=== PATIENT | female | born 1965 | race Caucasian/White ===

== ENCOUNTER 2025-02-06 15:01 | Inpatient (IN) | payer MEDICAID, SELFPAY ==
[~2025-02-06] VITALS: Ht 162.6 cm; Wt 71.2 kg
[~2025-02-06 15:01] MED LIST: CYCL-181; DICY-89
--- NOTE | 2025-02-06 15:12 | ED.PDOC ---
[facility] HPI Comments 59-year-old female who comes in with chief complaint of right-sided flank pain. The pain radiates around to the right lower quadrant and started this morning. There has been no dysuria or hematuria. The patient has had some nausea and vomiting today. The patient denies any chest pain, shortness for breath or fever. The patient admits to marijuana and methamphetamine use. The patient denies any trauma. 911 was called and the patient was transported to our facility. Upon arrival, the patient is still complaining of right-sided flank pain. Time Seen by MD: 15:06 Primary Care Provider: JEANINE Reviewed notes: Nurses Notes, Idea Man Notes, Medications, Allergies (No allergies to medications) Allergies: Coded Allergies: NO KNOWN ALLERGIES (Unverified , 01/13/10) Home Meds Reported Medications Dicyclomine Hcl (Dicyclomine Hcl) 10 Mg Cap, PRN 01/13/10 Cyclobenzaprine Hcl (Flexeril) 10 Mg Tb, PRN 01/13/10 Information Source: Patient, Emergency Med Personnel Mode of Arrival: EMS Severity: Moderate Inability to void: None Timing: Hours Duration: Since onset Prehospital treatment: None Onset: Spontaneous Symptoms: None History of: None Location: (R) Flank Modifying factors: None associated signs and symptoms: Abdominal Pain, Nausea, Vomiting, Flank Pain (Right-sided flank pain) Past Medical History PAST MEDICAL HISTORY: Denies Surgical History: Cholecystectomy, Tonsillectomy 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 History Family History Family History: Family hx of DM, Family hx of Cancer, Family hx of heart roro Social History Smoker: Cigarettes Alcohol: Denies ETOH Use Drugs: Denies Drug Use, Marijuana, Methamphetamine Lives In: Home Constitutional: denies: chills, diaphoresis, fatigue, fever, malaise, sweats, weakness, others EENTM: denies: blurred vision, double vision, ear bleeding, ear discharge, ear drainage, ear pain, ear ringing, eye pain, eye redness, hearing loss, mouth pain, mouth swelling, nasal discharge, nose bleeding, nose congestion, nose pain, photophobia, tearing, throat pain, throat swelling, voice changes, others Respiratory: denies: cough, hemoptysis, orthopnea, SOB at rest, shortness of breath, SOB with excertion, stridor, wheezing, others Cardiovascular: denies: chest pain, dizzy spells, diaphoresis, Dyspnea on exertion, edema, irregular heart beat, left arm pain, lightheadedness, palpitations, PND, syncope, others Gastrointestinal: reports: nausea, vomiting; denies: abdomen distended, abdominal pain, blood streaked bowels, constipated, diarrhea, dysphagia, difficulty swallowing, hematemesis, melena, poor appetite, poor fluid intake, rectal bleeding, rectal pain, others Genitourinary: reports: flank pain (Right-sided flank pain); denies: abnormal vagina bleeding, burning, dyspareunia, dysuria, frequency, hematuria, incontinence, pain, , vagina discharge, urgency, others Neurological: denies: dizziness, fainting, headache, left sided numbness, left sided weakness, numbness, paresthesia, pre-existing deficit, right sided numbness, right sided weakness, seizure, speech problems, tingling, tremors, weakness, others Musculoskeletal: denies: back pain, gout, joint pain, joint swelling, muscle pain, muscle stiffness, neck pain, others Integumetry: denies: bruises, change in color, change in hair/nails, dryness, laceration, lesions, lumps, rash, wounds, others Allergic/Immunocompromised: denies: Difficulty Healing, Frequent Infections, Hives, Itching, others Hematologic/Lymphatic: denies: anemia, blood clots, easy bleeding, easy bru ising, swollen glands, others Endocrine: denies: excessive hunger, excessive sweating, excessive thirst, e xcessive urination, flushing, intolerance to cold, intolerance to heat, unexplained weight gain, unexplained weight loss, others Psychiatric: denies: anxiety, bipolar disorder, depression, hopeless, panic disorder, schizophrenia, sleepless, suicidal, others Physical Exam General Appearance: Moderate Distress HEENT: Normal ENT Inspection, Pharynx Normal, TMs Normal Neck: Full Range of Motion, Non-Tender, Normal, Normal Inspection Respiratory: Chest Non-Tender, Lungs Clear, No Accessory Muscle Use, No Respiratory Distress, Normal Breath Sounds Cardiovascular: No Edema, No JVD, No Murmur, No Gallop, Normal Peripheral Pu lses, Regular Rate/Rhythm Breast Exam: Deferred Gastrointestinal: No Organomegaly, Non Tender, No Pulsatile Mass, Normal Bowel Sounds, Soft Genitalia: Deferred Pelvic: Deferred Rectal: Deferred Extremities: No calf tenderness, Normal capillary refill, Normal inspection, Normal range of motion, Non-tender, No pedal edema Musculoskeletal : Location: Right Extremity Location: Back Apperance: Tenderness: Mild Neurologic: Alert, prior authorization nurse II-XII nml as Tested, No Motor Deficits, Normal Affect, Normal Mood, No Sensory Deficits Cerebellar Function: Normal Reflexes: Normal Skin: Dry, Normal Color, Warm Lymphatic: No Adenopathy Was a procedure done? Was a procedure done?: No EKG EKG : Pulse Rate (adult): 55 [place]: Normal Cardiac Rhythm: NSR Block: None ST: Nonsp Differential Diagnosis Kidney stone (Female): Musculoskeletal pain, Pyelonephritis, Renal failure, Strain, Urolithiasis X-Ray, Labs, Meds, VS Vital Signs Date Time Temp Pulse Resp B/P (MAP) Pulse Ox O2 Delivery O2 Flow Rate FiO2 02/06/25 15:17 98.0 72 24 144/77 (99) 98 98.0 02/06/25 15:12 55 02/06/25 15:06 55 Lab Test 02/06/25 15:30 02/06/25 15:03 Range/Units White Blood Count 10.0 4.4-10.8 10^3/uL Red Blood Count 5.18 4.0-5.20 10^6/uL Hemoglobin 15.2 12.2-16.2 g/dL Hematocrit 45.1 36.0-46.0 % Mean Corpuscular Volume 87.0 80.0-100.0 fL Mean Corpuscular Hemoglobin 29.3 28.0-32.0 pg Mean Corpuscular Hemoglobin Concent 33.6 32.0-36.0 g/dL Red Cell Distribution Width 13.8 11.8-14.3 % Platelet Count 199 140-450 10^3/uL Mean Platelet Volume 10.2 6.9-10.8 fL Neutrophils (%) (Auto) 77.5 37.0-80.0 % Lymphocytes (%) (Auto) 15.0 10.0-50.0 % Monocytes (%) (Auto) 5.5 0.0-12.0 % Eosinophils (%) (Auto) 1.3 0.0-7.0 % Basophils (%) (Auto) 0.7 0.0-2.0 % Neutrophils # (Auto) 7.8 1.6-8.6 10 ^3/uL Lymphocytes # (Auto) 1.5 0.4-5.4 10 ^3/uL Monocytes # (Auto) 0.6 0-1.3 10 ^3/uL Eosinophils # (Auto) 0.1 0-0.8 10 ^3/uL Basophils # (Auto) 0.1 0-0.2 10 ^3/uL Nucleated Red Blood Cells 0.1 % Sodium Level 143 136-145 mmol/L Potassium Level 4.0 3.5-5.1 mmol/L Chloride Level 108 H 98-107 mmol/L Carbon Dioxide Level 26 20-31 mmol/L Anion Gap 9 5-15 Blood Urea Nitrogen 15 9-23 mg/dL Creatinine 1.01 0.550-1.02 mg/dL Glomerular Filtration Rate Calc 63 >90 mL/min BUN/Creatinine Ratio 14.9 10.0-20.0 Serum Glucose 111 H 74-106 mg/dL Calcium Level 10.8 H 8.7-10.4 mg/dL Urine Color Yellow Yellow Urine Clarity Clear Clear Urine pH 6.5 5.0-9.0 Urine Specific [place] 1.021 1.001-1.035 Urine Protein Negative Negative Urine Ketones Negative Negative Urine Blood 1+ H Negative /uL Urine Nitrite Negative Negative Urine Bilirubin Negative Negative Urine Urobilinogen Normal Negative mg/dL Urine Leukocyte Esterase Negative Negative /uL Urine RBC 46 0 - 4 /hpf Urine Microscopic WBC 1 0-5 /HPF Urine Squamous Epithelial Cells Few <5 /hpf Urine Bacteria None seen None Seen /hpf Urine Mucus Few None Seen Urine Glucose Normal Normal mg/dL IV Hep-Lock was established The patient was given 1 L bolus of normal saline The patient was given morphine 4 mg IV push for the pain The patient was given Zofran 4 mg IV push for the nausea CT Scan of the abdomen and pelvis shows: IMPRESSION: Mild right hydronephrosis with 3 x 4 mm obstructing calculus within the right distal ureter. Additional punctate nonobstructing right renal lower pole calculi are noted. Mild gastric wall thickening which may be due to inadequate distention/ mild gastritis. Appendix is not definitely visualized. Without visualization of the appendix, can not exclude acute appendicitis. 1.4 cm left adrenal adenoma The urine test is negative for infection The patient's CBC and chemistry panel are within normal limits The patient is being admitted A urology consult will be obtained The patient's diagnosis is acute abdominal pain with the right ureterolithiasis Images Reviewed?: Images reviewed and evaluated by me Time of 1ST Reevaluation: 15:12 Reevaluation 1ST: Unchanged Patient Education/Counseling: Diagnosis, Treatment, Prognosis Family Education/Counseling: No Family Present SEPSIS Sepsis Screen Physician Orders Ct Ab Pel Wo Con-No Oral Or Iv (02/06/25 15:06) Heplock Iv (02/06/25 15:06) Telehealth Director (02/06/25 15:06) Blood Pressure (02/06/25 15:06) Pulse Oximetry (02/06/25 15:06) Vital Signs Date Time Temp Pulse Resp B/P (MAP) Pulse Ox O2 Delivery O2 Flow Rate FiO2 02/06/25 15:17 98.0 72 24 144/77 (99) 98 98.0 02/06/25 15:12 55 02/06/25 15:06 55 Laboratory Tests Test 02/06/25 15:30 White Blood Count 10.0 10^3/uL (4.4-10.8) Departure 1 Departure Time of Disposition: 17:10 Impression: Primary Impression: Intractable abdominal pain Additional Impressions: Ureterolithiasis Hydronephrosis, right Disposition: 09 ADMITTED INPATIENT Admit to: Med Surg Condition: Fair Critical Care Note Critical Care Time?: No Stability Stability form required: Yes Unstable for transfer: ED Physician Assesment (Clinical assesment) Heart Score Heart Score: Heart Score Response (Comments) Value History N/A 0 EKG N/A 0 Age N/A 0 Risk Factors N/A 0 Troponin N/A 0 Total 0 THELMA BAUTISTA MD Feb 06, 2025 15:12
--- NOTE | 2025-02-06 15:15 | ECG ---
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
[2025-02-06 15:43] LABS: Basophils # (auto) 0.1 10 ^3/uL (0-0.2); Basophils % (auto) 0.7 % (0.0-2.0); Eosinophils # (auto) 0.1 10 ^3/uL (0-0.8); Eosinophils % (auto) 1.3 % (0.0-7.0); Hematocrit 45.1 % (36.0-46.0); Hemoglobin 15.2 g/dL (12.2-16.2); Lymphocytes # (auto) 1.5 10 ^3/uL (0.4-5.4); Mean Corpuscular Hemoglobin 29.3 pg (28.0-32.0); Mean Corpuscular Hgb Conc. 33.6 g/dL (32.0-36.0); Monocytes # (auto) 0.6 10 ^3/uL (0-1.3); Monocytes % (auto) 5.5 % (0.0-12.0); Neutrophils # (auto) 7.8 10 ^3/uL (1.6-8.6); Neutrophils % (auto) 77.5 % (37.0-80.0); Nucleated Red Blood Cells % 0.1 %; Platelet Count (auto) 199 10^3/uL (140-450); Red Blood Cells 5.18 10^6/uL (4.0-5.20); Red Cell Distribution Width 13.8 % (11.8-14.3)
[2025-02-06 15:55] LABS: Sodium 143 mmol/L (136-145)
[2025-02-06 15:56] LABS: Anion Gap 9 (5-15); Carbon Dioxide 26 mmol/L (20-31)
[2025-02-06 16:01] LABS: BUN/Creatinine Ratio 14.9 (10.0-20.0); Blood Urea Nitrogen 15 mg/dL (9-23); Calcium 10.8 mg/dL (8.7-10.4); Chloride 108 mmol/L (98-107); Glucose 111 mg/dL (74-106)
[2025-02-06 16:04] LABS: Urine Bacteria None Seen /hpf (None Seen)
[2025-02-06 16:15] LABS: Urine Blood 1+ /uL (Negative); Urine Clarity Clear (Clear); Urine Color Yellow (Yellow); Urine Mucus FEW (None Seen); Urine Protein, UAD Negative (Negative); Urine Specific Gravity 1.021 (1.001-1.035); Urine Squamous Epithelial Cell FEW /hpf (<5); Urine Urobilinogen Normal (Negative); Urine WBC 1 /HPF (0-5); Urine pH 6.5 (5.0-9.0)
--- NOTE | 2025-02-06 17:02 | DVH ---
Exam: CT CT AB PEL WO CON-NO ORAL OR IV History: Right-sided flank pain Comparison Study: None TECHNIQUE: Multidetector CT of the abdomen and pelvis without IV contrast. Axial, coronal and sagitta l multiplanar reformats were obtained from the axial data set by the technologist. Radiation Dose Information: CT Dose: CTDI volume is 7.79 mGy. Dose-length product is 370.83 mGy*cm FINDINGS: Bibasilar atelectasis. Partially visualized heart is unremarkable. Liver, spleen, pancreas and right adrenal gland are unremarkable. 1.8 cm left adrenal nodule measurin g up to -4 Hounsfield units which may represent an adenoma. Punctate nonobstructing right renal calculi. Mild right hydronephrosis with 3 x 4 mm obstructing calc ulus within the right distal ureter in close proximity to the ureterovesical junction. The left kidne y, left ureter and urinary bladder are unremarkable. Uterus and adnexa are unremarkable. Mild gastric wall thickening. Small bowel loops unremarkable. Appendix is not definitely visualized. Without Visualization of the appendix, can not exclude acute appendicitis. Small to moderate amount of fecal material within the colon. No evidence of intraperitoneal free air or free fluid. No evidence of aortic aneurysm. [id number] atherosclerotic calcification of the aorta and bilat eral iliacs. No significant lymphadenopathy. Soft tissues unremarkable. No destructive osseous lesions are noted. IMPRESSION: Mild right hydronephrosis with 3 x 4 mm obstructing calculus within the right distal ureter. Additional punctate nonobstructing right renal lower pole calculi are noted. Mild gastric wall thickening which may be due to inadequate distention/ mild gastritis. Appendix is not definitely visualized. Without visualization of the appendix, can not exclude acute a ppendicitis. 1.4 cm left adrenal adenoma
[2025-02-06] MEDS: SODIUM CHLORIDE 0.9% 1,000 ML IVB ONE (18:29)
[2025-02-06] MEDS: ONDANSETRON HCL 4 MG/2 ML VIAL IV ONE (18:29)
[2025-02-06] MEDS: MORPHINE SULFATE 4 MG/ML SYR/VIAL IV ONE (18:30)
[2025-02-06] MEDS ORDERED: ONDANSETRON HCL 4 MG/2 ML VIAL IV PRN (19:30)
[2025-02-06] MEDS ORDERED: ACETAMINOPHEN 325 MG TAB PO PRN (19:30)
[2025-02-06] MEDS ORDERED: HYDROcodone-ACET 5/325MG TAB PO PRN (19:30)
[2025-02-06] MEDS: SODIUM CHLORIDE 0.9% 500 ML IV ONE (21:02)
[2025-02-06] MEDS: TAMSULOSIN HYDROCHLORIDE 0.4 MG CAP PO ONE (21:02)
--- NOTE | 2025-02-06 21:30 | DVHHP2 ---
History of Present Illness Reason for Visit: Flank pain History of Present Illness 67-year-old female presents for evaluation of right-sided flank pain. Patient reports the symptoms started today in the afternoon. Denies dysuria or hematuria. Reports chills and nausea. No other acute complaints reported Past Medical History Denies Past Surgical History Tonsillectomy and cholecystectomy Family History Diabetes mellitus and heart disease Smoke: <1 pack per day ALCOHOL: occassional Drugs: Marijuana, Other (Methamphetamine) Review of Systems Review of Systems Review of systems are currently negative otherwise addressed in HPI. Allergies: Coded Allergies: NO KNOWN ALLERGIES (Unverified , 01/13/10) Medications Current Medications Medications Dose Ordered Sig/Noemy Route Start Time Stop Time Status Last Admin Dose Admin Acetaminophen/ Hydrocodone Bitart 1 tab Q4HP PRN PO 02/06/25 19:30 Ondansetron HCl 4 mg Q4HP PRN IV 02/06/25 19:30 Acetaminophen 650 mg Q6HP PRN PO 02/06/25 19:30 Morphine Sulfate 2 mg Q4HPRN PRN IV 02/06/25 19:30 Exam Vital Signs Vital Signs Date Time Temp Pulse Resp B/P (MAP) Pulse Ox O2 Delivery O2 Flow Rate FiO2 02/06/25 21:03 98.4 68 17 137/64 (88) 98 98.4 02/06/25 18:00 Room Air* 0 21 Exam Gen: 59-year-old female in mild distress Skin: Warm, dry, normal color and texture, no rash. HEENT: Normocephalic atraumatic, mucous membranes moist and pink. Neck: Cervical and supraclavicular nodes normal without enlargement, trachea is midline, thyroid gland is normal without masses. Pulmonary: Clear to auscultation and percussion bilaterally. Cardiac: Regular rate and rhythm. No murmur Abdomen: Soft, right CVA tenderness, nondistended, bowel sounds present all 4 quadrants, no guarding, no rigidity, no organomegaly. Extremities: No cyanosis, clubbing, no edema Neuro: Cranial nerves II through XII grossly intact, normal affect and speech, no focal motor deficits. Labs/Xrays ORDERING PHYSICIAN: THELMA BAUTISTA MD PROCEDURE(s): ABPL - CT AB PEL WO CON-NO ORAL OR IV REASON: Right-sided flank pain ORDER NUMBER(s): [id number], ACCESSION NUMBER(s): [id number] Exam: CT CT AB PEL WO CON-NO ORAL OR IV History: Right-sided flank pain Comparison Study: None TECHNIQUE: Multidetector CT of the abdomen and pelvis without IV contrast. Axial, coronal and sagittal multiplanar reformats were obtained from the axial data set by the technologist. Radiation Dose Information: CT Dose: CTDI volume is 7.79 mGy. Dose-length product is 370.83 mGy*cm FINDINGS: Bibasilar atelectasis. Partially visualized heart is unremarkable. Liver, spleen, pancreas and right adrenal gland are unremarkable. 1.8 cm left adrenal nodule measuring up to -4 Hounsfield units which may represent an adenoma. Punctate nonobstructing right renal calculi. Mild right hydronephrosis with 3 x 4 mm obstructing calculus within the right distal ureter in close proximity to the ureterovesical junction. The left kidney, left ureter and urinary bladder are unremarkable. Uterus and adnexa are unremarkable. Mild gastric wall thickening. Small bowel loops unremarkable. Appendix is not definitely visualized. Without Visualization of the appendix, can not exclude acute appendicitis. Small to moderate amount of fecal material within the colon. No evidence of intraperitoneal free air or free fluid. No evidence of aortic aneurysm. [id number] atherosclerotic calcification of the aorta and bilateral iliacs. No significant lymphadenopathy. Soft tissues unremarkable. No destructive osseous lesions are noted. IMPRESSION: Mild right hydronephrosis with 3 x 4 mm obstructing calculus within the right distal ureter. Additional punctate nonobstructing right renal lower pole calculi are noted. Mild gastric wall thickening which may be due to inadequate distention/ mild gastritis. Appendix is not definitely visualized. Without visualization of the appendix, can not exclude acute appendicitis. 1.4 cm left adrenal adenoma Labs Test 02/06/25 15:30 02/06/25 15:03 Range/Units White Blood Count 10.0 4.4-10.8 10^3/uL Red Blood Count 5.18 4.0-5.20 10^6/uL Hemoglobin 15.2 12.2-16.2 g/dL Hematocrit 45.1 36.0-46.0 % Mean Corpuscular Volume 87.0 80.0-100.0 fL Mean Corpuscular Hemoglobin 29.3 28.0-32.0 pg Mean Corpuscular Hemoglobin Concent 33.6 32.0-36.0 g/dL Red Cell Distribution Width 13.8 11.8-14.3 % Platelet Count 199 140-450 10^3/uL Mean Platelet Volume 10.2 6.9-10.8 fL Neutrophils (%) (Auto) 77.5 37.0-80.0 % Lymphocytes (%) (Auto) 15.0 10.0-50.0 % Monocytes (%) (Auto) 5.5 0.0-12.0 % Eosinophils (%) (Auto) 1.3 0.0-7.0 % Basophils (%) (Auto) 0.7 0.0-2.0 % Neutrophils # (Auto) 7.8 1.6-8.6 10 ^3/uL Lymphocytes # (Auto) 1.5 0.4-5.4 10 ^3/uL Monocytes # (Auto) 0.6 0-1.3 10 ^3/uL Eosinophils # (Auto) 0.1 0-0.8 10 ^3/uL Basophils # (Auto) 0.1 0-0.2 10 ^3/uL Nucleated Red Blood Cells 0.1 % Sodium Level 143 136-145 mmol/L Potassium Level 4.0 3.5-5.1 mmol/L Chloride Level 108 H 98-107 mmol/L Carbon Dioxide Level 26 20-31 mmol/L Anion Gap 9 5-15 Blood Urea Nitrogen 15 9-23 mg/dL Creatinine 1.01 0.550-1.02 mg/dL Glomerular Filtration Rate Calc 63 >90 mL/min BUN/Creatinine Ratio 14.9 10.0-20.0 Serum Glucose 111 H 74-106 mg/dL Calcium Level 10.8 H 8.7-10.4 mg/dL Urine Color Yellow Yellow Urine Clarity Clear Clear Urine pH 6.5 5.0-9.0 Urine Specific [place] 1.021 1.001-1.035 Urine Protein Negative Negative Urine Ketones Negative Negative Urine Blood 1+ H Negative /uL Urine Nitrite Negative Negative Urine Bilirubin Negative Negative Urine Urobilinogen Normal Negative mg/dL Urine Leukocyte Esterase Negative Negative /uL Urine RBC 46 0 - 4 /hpf Urine Microscopic WBC 1 0-5 /HPF Urine Squamous Epithelial Cells Few <5 /hpf Urine Bacteria None seen None Seen /hpf Urine Mucus Few None Seen Urine Glucose Normal Normal mg/dL Assessment/Plan Assessment/Plan Assessment Renal colic Right hydronephrosis Plan Admit the patient to [facility] to the hospitalist Urology consultation Pain management Continue treatment per orders. Plan discussed with: Patient My Orders Orders - BENJAMIN HELTON Procedure Category Date Status Time * Urology Consult CONS 02/06/25 Transmitted 19:18 Basic Metabolic Panel LAB 02/07/25 Verified 04:00 Admit ADMIT 02/06/25 Transmitted 19:18 Hydrocodone-Acet PHA 02/06/25 In Process 5/325mg Tab ([place] 19:30 Ondansetron Hcl PHA 02/06/25 In Process (Zofran) 19:30 Condition: Stable JOAO 02/06/25 In Process 19:18 Acetaminophen Tablet PHA 02/06/25 In Process (Tylenol Tablet) 19:30 Bedrest With Bathroom JOAO 02/06/25 In Process Privileg 19:18 Morphine Sulfate PHA 02/06/25 In Process Injection 19:30 Regular Diet DIET 02/07/25 Transmitted Breakfast Date of Service: Feb 06, 2025 Billing Provider: BENJAMIN HELTON Common Visit Codes: [id number] INP/OBS CARE (MOD) BENJAMIN HELTON Feb 06, 2025 21:30
[2025-02-06 22:37] VITALS: BP 129/70; PULSE 84; RESP 18; TEMP 98.3; O2SAT 100; O2SAT 98
[2025-02-06] MEDS: MORPHINE SULFATE INJ 2 MG/ml SYRG IV PRN (23:14)
[2025-02-07 05:10] LABS: Potassium 3.7 mmol/L (3.5-5.1); Sodium 140 mmol/L (136-145)
[2025-02-07 05:11] LABS: Anion Gap 10 (5-15); Carbon Dioxide 23 mmol/L (20-31)
[2025-02-07 05:16] LABS: BUN/Creatinine Ratio 11.9 (10.0-20.0); Blood Urea Nitrogen 13 mg/dL (9-23)
[2025-02-07 05:22] LABS: Chloride 107 mmol/L (98-107); Glucose 124 mg/dL (74-106)
[2025-02-07 05:26] VITALS: BP 119/64; PULSE 84; RESP 18; TEMP 98.3; O2SAT 96
[2025-02-07 07:43] VITALS: BP 110/51; PULSE 88; RESP 16; TEMP 98.1; O2SAT 97
--- NOTE | 2025-02-07 11:51 | DVHINCON2 ---
Date of service: Feb 07, 2025 Referring Physician hospitalist Reason for Consultation ureteral stone History of Present Illness History Source: Patient, Spouse/Significant Other, RN Notes, MD Notes Exam Limitations: No limitations HPI 59 year old female RLQ pain with hematuria. CT scan showed 4-5 mm distal right ureteral stone with mild to moderate hydro. Patient reports pain has improved, but not gone. Denies fever, chills, nausea, vomiting, diarrhea. Spouse at bedside during interview. Home Meds Discontinued Reported Medications Dicyclomine Hcl (Dicyclomine Hcl) 10 Mg Cap, PRN 01/13/10 Cyclobenzaprine Hcl (Flexeril) 10 Mg Tb, PRN 01/13/10 Past Medical History Patient Family History: Patient reports no known family medical history. Review of Systems Gastrointestinal: Abdominal Pain Genitourinary: Hematuria H&P Exam Vital Signs Vital Signs Date Time Temp Pulse Resp B/P (MAP) Pulse Ox O2 Delivery O2 Flow Rate FiO2 02/07/25 07:45 89 16 110/51 02/07/25 07:43 98.1 97 98.1 02/06/25 22:37 Room Air* 0 21 General Appeara: Well developed, Well nourished, Normal Appearance Neuro/Mental St: Alert, Oriented Appearance: Appropriate appearance, Appropriate insight Eye contact/ Speech: Cooperative, Good eye contact, Normal speech Coordination/Gait: Normal finger->nose, Normal gait, Negative Romberg's sign Skin Exam: Normal inspection, Normal color, Warm/dry Labs/Xrays [place] [address] Ph: [phone] DIAGNOSTIC IMAGING Diagnostic Imaging Report : [id number] Signed PATIENT: LORA FORBES ACCT: [id number] UNIT: [id number] : 1965 LOC: ER ROOM / BED: / AGE / SEX: 59 / F ADM STATUS: REG ER SERVICE 150 ORDERING PHYSICIAN: THELMA BAUTISTA MD PROCEDURE(s): ABPL - CT AB PEL WO CON-NO ORAL OR IV REASON: Right-sided flank pain ORDER NUMBER(s): [id number], ACCESSION NUMBER(s): [id number] Exam: CT CT AB PEL WO CON-NO ORAL OR IV History: Right-sided flank pain Comparison Study: None TECHNIQUE: Multidetector CT of the abdomen and pelvis without IV contrast. Axial, coronal and sagittal multiplanar reformats were obtained from the axial data set by the technologist. Radiation Dose Information: CT Dose: CTDI volume is 7.79 mGy. Dose-length product is 370.83 mGy*cm FINDINGS: Bibasilar atelectasis. Partially visualized heart is unremarkable. Liver, spleen, pancreas and right adrenal gland are unremarkable. 1.8 cm left adrenal nodule measuring up to -4 Hounsfield units which may represent an adenoma. Punctate nonobstructing right renal calculi. Mild right hydronephrosis with 3 x 4 mm obstructing calculus within the right distal ureter in close proximity to the ureterovesical junction. The left kidney, left ureter and urinary bladder are unremarkable. Uterus and adnexa are unremarkable. Mild gastric wall thickening. Small bowel loops unremarkable. Appendix is not definitely visualized. Without Visualization of the appendix, can not exclude acute appendicitis. Small to moderate amount of fecal material within the colon. No evidence of intraperitoneal free air or free fluid. No evidence of aortic aneurysm. [id number] atherosclerotic calcification of the aorta and bilateral iliacs. No significant lymphadenopathy. Soft tissues unremarkable. No destructive osseous lesions are noted. IMPRESSION: Mild right hydronephrosis with 3 x 4 mm obstructing calculus within the right distal ureter. Additional punctate nonobstructing right renal lower pole calculi are noted. Mild gastric wall thickening which may be due to inadequate distention/ mild gastritis. Appendix is not definitely visualized. Without visualization of the appendix, can not exclude acute appendicitis. 1.4 cm left adrenal adenoma ATED BY: SANGEETA EATON DO DICTATED DATE/TIME: 02/06/251699 SIGNED BY: SANGEETA EATON DO SIGNED DATE/TIME: 02/06/25 170 CC: Labs Test 02/07/25 04:13 02/06/25 15:30 02/06/25 15:03 Range/Units Sodium Level 140 136-145 mmol/L Potassium Level 3.7 3.5-5.1 mmol/L Chloride Level 107 98-107 mmol/L Carbon Dioxide Level 23 20-31 mmol/L Anion Gap 10 5-15 Blood Urea Nitrogen 13 9-23 mg/dL Creatinine 1.09 H 0.550-1.02 mg/dL Glomerular Filtration Rate Calc 58 >90 mL/min BUN/Creatinine Ratio 11.9 10.0-20.0 Serum Glucose 124 H 74-106 mg/dL Calcium Level 9.0 8.7-10.4 mg/dL White Blood Count 10.0 4.4-10.8 10^3/uL Red Blood Count 5.18 4.0-5.20 10^6/uL Hemoglobin 15.2 12.2-16.2 g/dL Hematocrit 45.1 36.0-46.0 % Mean Corpuscular Volume 87.0 80.0-100.0 fL Mean Corpuscular Hemoglobin 29.3 28.0-32.0 pg Mean Corpuscular Hemoglobin Concent 33.6 32.0-36.0 g/dL Red Cell Distribution Width 13.8 11.8-14.3 % Platelet Count 199 140-450 10^3/uL Mean Platelet Volume 10.2 6.9-10.8 fL Neutrophils (%) (Auto) 77.5 37.0-80.0 % Lymphocytes (%) (Auto) 15.0 10.0-50.0 % Monocytes (%) (Auto) 5.5 0.0-12.0 % Eosinophils (%) (Auto) 1.3 0.0-7.0 % Basophils (%) (Auto) 0.7 0.0-2.0 % Neutrophils # (Auto) 7.8 1.6-8.6 10 ^3/uL Lymphocytes # (Auto) 1.5 0.4-5.4 10 ^3/uL Monocytes # (Auto) 0.6 0-1.3 10 ^3/uL Eosinophils # (Auto) 0.1 0-0.8 10 ^3/uL Basophils # (Auto) 0.1 0-0.2 10 ^3/uL Nucleated Red Blood Cells 0.1 % Urine Color Yellow Yellow Urine Clarity Clear Clear Urine pH 6.5 5.0-9.0 Urine Specific [place] 1.021 1.001-1.035 Urine Protein Negative Negative Urine Ketones Negative Negative Urine Blood 1+ H Negative /uL Urine Nitrite Negative Negative Urine Bilirubin Negative Negative Urine Urobilinogen Normal Negative mg/dL Urine Leukocyte Esterase Negative Negative /uL Urine RBC 46 0 - 4 /hpf Urine Microscopic WBC 1 0-5 /HPF Urine Squamous Epithelial Cells Few <5 /hpf Urine Bacteria None seen None Seen /hpf Urine Mucus Few None Seen Urine Glucose Normal Normal mg/dL Assessment/Plan Problem List: (1) Ureterolithiasis (2) Hydronephrosis, right (3) Intractable abdominal pain Plan expulsive measures pain control aggressive fluids Plan discussed with: Patient, Other MINI SUAREZ NP Feb 07, 2025 11:51
[2025-02-07 13:00] VITALS: BP 106/64; PULSE 84; RESP 18; TEMP 97; O2SAT 99
[2025-02-07] MEDS: MANNITOL FTV 25% 12.5 GM/50 ML 50 ML IV ONE (13:31)
[2025-02-07 16:45] VITALS: BP 103/58; PULSE 83; RESP 20; TEMP 98; O2SAT 95
[2025-02-07 21:00] VITALS: BP 111/64; PULSE 86; RESP 18; TEMP 98.3; O2SAT 97
[2025-02-08 05:00] VITALS: BP 97/55; PULSE 75; RESP 18; TEMP 98; O2SAT 97
[2025-02-08 09:00] VITALS: BP 115/56; PULSE 83; RESP 18; TEMP 98.1; O2SAT 97
[2025-02-08 13:00] VITALS: BP 111/59; PULSE 74; RESP 18; TEMP 98.1; O2SAT 98
--- NOTE | 2025-02-08 14:03 | DVHPN2 ---
Progress Note - Dictate Date Seen: Feb 08, 2025 Medical Necessity Reason Pt with a Central, PICC or Fol: No Subjective feeling well. eating lunch vital signs Vital Sign Date Time Temp Pulse Resp B/P (MAP) Pulse Ox O2 Delivery O2 Flow Rate FiO2 02/08/25 09:00 98.1 83 18 115/56 (75) 97 98.1 02/08/25 08:00 Room Air* 0 21 Total Intake and Output 02/07/25 02/07/25 02/08/25 15:00 23:00 07:00 Intake Total 600 ml 680 ml Balance 600 ml 680 ml medications Current Medications Medications Dose Ordered Sig/Noemy Route Start Time Stop Time Status Last Admin Dose Admin Acetaminophen/ Hydrocodone Bitart 1 tab Q4HP PRN PO 02/06/25 19:30 Ondansetron HCl 4 mg Q4HP PRN IV 02/06/25 19:30 Acetaminophen 650 mg Q6HP PRN PO 02/06/25 19:30 Morphine Sulfate 2 mg Q4HPRN PRN IV 02/06/25 19:30 02/07/25 19:11 2 MG objective taking with spouse at the bedside laboratory and microbiology Laboratory Tests 02/07/25 04:13 02/06/25 15:30 Test 02/07/25 04:13 Range/Units Serum Glucose 124 H 74-106 mg/dL Assessment/Plan continue expulsive measures pain meds prn revaluate hydro tomorrow with renal US Problems(with codes): (1) Ureterolithiasis (2) Hydronephrosis, right (3) Intractable abdominal pain Prognosis good Plan discussed with: Patient, Spouse, Other Total Time (mins): 14 MINI SUAREZ NP Feb 08, 2025 14:03
[2025-02-08] MEDS: MANNITOL FTV 25% 12.5 GM/50 ML 50 ML IV ONE (15:42)
[2025-02-08 17:15] VITALS: BP 126/75; PULSE 78; RESP 16; TEMP 98.2; O2SAT 95
[2025-02-08 20:00] VITALS: PULSE 86; RESP 18; O2SAT 95
[2025-02-08 21:00] VITALS: BP 112/54; PULSE 86; RESP 18; TEMP 98; O2SAT 95
[2025-02-09] VITALS (8 sets, daily range): BP systolic 112–132; BP diastolic 53–74; PULSE 73–95; RESP 16–19; TEMP 96.7–98.5; O2SAT 95–99
--- NOTE | 2025-02-09 05:10 | DVH ---
INDICATION: hydronephrosis TECHNIQUE: Multiple real-time sonographic images of the kidneys and bladder were obtained. COMPARISON: None FINDINGS: RIGHT kidney measures 10.3 cm in length. No hydronephrosis. 0.2 cm nonobstructing stone in the right mid kidney. LEFT kidney measures 9.8 cm in length. No hydronephrosis. Bladder is contracted and suboptimally visualized. IMPRESSION: No hydronephrosis. Probable 0.2 cm nonobstructing stone in the right mid kidney.
--- NOTE | 2025-02-09 11:36 | DVHPN2 ---
Reviewed: Care Plan, H&P, Labs, Medications, Previous Orders, Radiology Changes from previous H/P or p: No Changes General: Per HPI Objective Vitals Vital Signs Date Time Temp Pulse Resp B/P (MAP) Pulse Ox O2 Delivery O2 Flow Rate FiO2 02/09/25 09:00 98.2 81 18 132/60 (84) 99 98.2 02/08/25 20:00 Room Air* 0 21 Intake/Output Intake and Output 02/09/25 07:00 Intake Total 1225 ml Balance 1225 ml Intake Oral 1225 ml # Voids 4 Medications Current Medications Medications Dose Ordered Sig/Noemy Route Start Time Stop Time Status Last Admin Dose Admin Acetaminophen/ Hydrocodone Bitart 1 tab Q4HP PRN PO 02/06/25 19:30 Ondansetron HCl 4 mg Q4HP PRN IV 02/06/25 19:30 Acetaminophen 650 mg Q6HP PRN PO 02/06/25 19:30 Morphine Sulfate 2 mg Q4HPRN PRN IV 02/06/25 19:30 02/08/25 15:46 2 MG Laboratory Results Laboratory Tests 02/06/25 15:30 02/07/25 04:13 Urinalysis Test 02/06/25 15:03 Urine Color Yellow (Yellow) Urine Clarity Clear (Clear) Urine pH 6.5 (5.0-9.0) Urine Specific [place] 1.021 (1.001-1.035) Urine Protein Negative (Negative) Urine Ketones Negative (Negative) Urine Blood 1+ /uL (Negative) H Urine Nitrite Negative (Negative) Urine Bilirubin Negative (Negative) Urine Urobilinogen Normal mg/dL (Negative) Urine Leukocyte Esterase Negative /uL (Negative) Urine RBC 46 /hpf (0 - 4) Urine Microscopic WBC 1 /HPF (0-5) Urine Squamous Epithelial Cells Few /hpf (<5) Urine Bacteria None seen /hpf (None Seen) Urine Mucus Few (None Seen) Urine Glucose Normal mg/dL (Normal) Assessment/Plan Assessment/Plan 67-year-old female presents for evaluation of right-sided flank pain. Patient reports the symptoms started today in the afternoon. Denies dysuria or hematuria. Reports chills and nausea. No other acute complaints reported 67-year-old female presents for evaluation of right-sided flank pain. Patient reports the symptoms started today in the afternoon. Denies dysuria or hematuria. Reports chills and nausea. No other acute complaints reported (1) Ureterolithiasis (2) Hydronephrosis, right (3) Intractable abdominal pain 02/08/2025 continue expulsive measures pain meds prn revaluate hydro tomorrow with renal US per urology Plan discussed with: Patient Date of Service: Feb 08, 2025 Billing Provider: ZACK BADILLO DO Common Visit Codes: [id number] INP/OBS CARE(HIGH) ZACK BADILLO DO Feb 09, 2025 11:36
--- NOTE | 2025-02-09 11:39 | DVHPN2 ---
Reviewed: Care Plan, H&P, Labs, Medications, Previous Orders Changes from previous H/P or p: No Changes General: Per HPI Objective Vitals Vital Signs Date Time Temp Pulse Resp B/P (MAP) Pulse Ox O2 Delivery O2 Flow Rate FiO2 02/09/25 09:00 98.2 81 18 132/60 (84) 99 98.2 02/08/25 20:00 Room Air* 0 21 Intake/Output Intake and Output 02/09/25 07:00 Intake Total 1225 ml Balance 1225 ml Intake Oral 1225 ml # Voids 4 Medications Current Medications Medications Dose Ordered Sig/Noemy Route Start Time Stop Time Status Last Admin Dose Admin Acetaminophen/ Hydrocodone Bitart 1 tab Q4HP PRN PO 02/06/25 19:30 Ondansetron HCl 4 mg Q4HP PRN IV 02/06/25 19:30 Acetaminophen 650 mg Q6HP PRN PO 02/06/25 19:30 Morphine Sulfate 2 mg Q4HPRN PRN IV 02/06/25 19:30 02/08/25 15:46 2 MG Laboratory Results Laboratory Tests 02/06/25 15:30 02/07/25 04:13 Urinalysis Test 02/06/25 15:03 Urine Color Yellow (Yellow) Urine Clarity Clear (Clear) Urine pH 6.5 (5.0-9.0) Urine Specific [place] 1.021 (1.001-1.035) Urine Protein Negative (Negative) Urine Ketones Negative (Negative) Urine Blood 1+ /uL (Negative) H Urine Nitrite Negative (Negative) Urine Bilirubin Negative (Negative) Urine Urobilinogen Normal mg/dL (Negative) Urine Leukocyte Esterase Negative /uL (Negative) Urine RBC 46 /hpf (0 - 4) Urine Microscopic WBC 1 /HPF (0-5) Urine Squamous Epithelial Cells Few /hpf (<5) Urine Bacteria None seen /hpf (None Seen) Urine Mucus Few (None Seen) Urine Glucose Normal mg/dL (Normal) Labs and/or images reviewed: Labs reviewed by me, Image(s) reviewed by me Assessment/Plan Assessment/Plan 67-year-old female presents for evaluation of right-sided flank pain. Patient reports the symptoms started today in the afternoon. Denies dysuria or hematuria. Reports chills and nausea. No other acute complaints reported 67-year-old female presents for evaluation of right-sided flank pain. Patient reports the symptoms started today in the afternoon. Denies dysuria or hematuria. Reports chills and nausea. No other acute complaints reported (1) Ureterolithiasis (2) Hydronephrosis, right (3) Intractable abdominal pain 02/08/2025 continue expulsive measures pain meds prn revaluate hydro tomorrow with renal US per urology 02/09/2025 continue with expulsive measure pain is better urology to evaluate Plan discussed with: Patient Date of Service: Feb 09, 2025 Billing Provider: ZACK BADILLO DO Common Visit Codes: [id number] INP/OBS CARE(HIGH) ZACK BADILLO DO Feb 09, 2025 11:38
[2025-02-09] MEDS: SODIUM CHLORIDE 0.9% 1,000 ML IV ONE (11:45)
[2025-02-09] MEDS: SODIUM CHLORIDE 0.9% 1,000 ML IV SCH (11:45)
[2025-02-10] VITALS (7 sets, daily range): BP systolic 116–134; BP diastolic 65–78; PULSE 74–84; RESP 17–20; TEMP 97.3–98.4; O2SAT 95–100
[2025-02-10 05:10] LABS: Opiate Scree,Urine Neg (NEGATIVE)
[2025-02-10 05:14] LABS: Amphetamine Screen, Urine Pos (NEGATIVE); Barbiturate Scree,Urine Neg (NEGATIVE); Benzodiazephine Screen, Urine Neg (NEGATIVE); Cannabinoid Screen, Urine Neg (NEGATIVE); Cocaine Screen, Urine Neg (NEGATIVE); Phencyclidine Screen, Urine Neg (NEGATIVE)
[2025-02-11 01:00] VITALS: BP 125/61; PULSE 85; RESP 17; TEMP 98.1; O2SAT 94
[2025-02-11 04:58] VITALS: BP 118/64; PULSE 71; RESP 17; TEMP 98; O2SAT 100
[2025-02-11 09:00] VITALS: BP 125/61; PULSE 75; RESP 16; TEMP 98.1; O2SAT 97
--- NOTE | 2025-02-11 12:50 | DVHPN2 ---
Reviewed: Care Plan, H&P, Labs, Medications, Previous Orders, Radiology Changes from previous H/P or p: No Changes General: Per HPI Objective Vitals Vital Signs Date Time Temp Pulse Resp B/P (MAP) Pulse Ox O2 Delivery O2 Flow Rate FiO2 02/11/25 09:00 98.1 75 16 125/61 (82) 97 98.1 02/11/25 08:00 Room Air* 0 21 Intake/Output Intake and Output 02/11/25 07:00 Intake Total 3970 ml Balance 3970 ml Intake Oral 1920 ml IV Total 2050 ml # Voids 7 Medications Current Medications Medications Dose Ordered Sig/Noemy Route Start Time Stop Time Status Last Admin Dose Admin Acetaminophen/ Hydrocodone Bitart 1 tab Q4HP PRN PO 02/06/25 19:30 Ondansetron HCl 4 mg Q4HP PRN IV 02/06/25 19:30 Acetaminophen 650 mg Q6HP PRN PO 02/06/25 19:30 Morphine Sulfate 2 mg Q4HPRN PRN IV 02/06/25 19:30 02/10/25 01:05 2 MG Sodium Chloride 1,000 ml @ 100 mls/hr Q10H IV 02/09/25 11:45 02/11/25 03:10 100 MLS/HR Laboratory Results Laboratory Tests 02/06/25 15:30 02/07/25 04:13 Urinalysis Test 02/06/25 15:03 Urine Color Yellow (Yellow) Urine Clarity Clear (Clear) Urine pH 6.5 (5.0-9.0) Urine Specific [place] 1.021 (1.001-1.035) Urine Protein Negative (Negative) Urine Ketones Negative (Negative) Urine Blood 1+ /uL (Negative) H Urine Nitrite Negative (Negative) Urine Bilirubin Negative (Negative) Urine Urobilinogen Normal mg/dL (Negative) Urine Leukocyte Esterase Negative /uL (Negative) Urine RBC 46 /hpf (0 - 4) Urine Microscopic WBC 1 /HPF (0-5) Urine Squamous Epithelial Cells Few /hpf (<5) Urine Bacteria None seen /hpf (None Seen) Urine Mucus Few (None Seen) Urine Glucose Normal mg/dL (Normal) Assessment/Plan Assessment/Plan 67-year-old female presents for evaluation of right-sided flank pain. Patient reports the symptoms started today in the afternoon. Denies dysuria or hematuria. Reports chills and nausea. No other acute complaints reported 67-year-old female presents for evaluation of right-sided flank pain. Patient reports the symptoms started today in the afternoon. Denies dysuria or hematuria. Reports chills and nausea. No other acute complaints reported (1) Ureterolithiasis (2) Hydronephrosis, right (3) Intractable abdominal pain 02/08/2025 continue expulsive measures pain meds prn revaluate hydro tomorrow with renal US per urology 02/09/2025 continue with expulsive measure pain is better urology to evaluate 02/10/2025 urology: possible lithotripsy continue with current care Plan discussed with: Patient My Orders Orders - ZACK BADILLO DO Procedure Category Date Status Time Discharge DISCHARGE 02/11/25 Transmitted 12:48 Date of Service: Feb 10, 2025 Billing Provider: ZACK BADILLO DO Common Visit Codes: [id number] INP/OBS CARE(HIGH) ZACK BADILLO DO Feb 11, 2025 12:50
--- NOTE | 2025-02-11 12:51 | DVHDS2 ---
Discharge Summary Date of Admission Feb 06, 2025 at 19:18 Date of Discharge: Feb 11, 2025 Labs/Diagnostic Data: Laboratory Results Test 02/10/25 04:15 02/07/25 04:13 02/06/25 15:30 02/06/25 15:03 Urine Opiates Screen Neg (NEGATIVE) Urine Fentanyl Screen Neg (NEGATIVE) Urine Barbiturates Screen Neg (NEGATIVE) Urine Phencyclidine Screen Neg (NEGATIVE) Urine Amphetamines Screen Pos (NEGATIVE) Urine Benzodiazepines Screen Neg (NEGATIVE) Urine Cocaine Screen Neg (NEGATIVE) Urine Cannabinoids Screen Neg (NEGATIVE) Sodium Level 140 mmol/L (136-145) Potassium Level 3.7 mmol/L (3.5-5.1) Chloride Level 107 mmol/L (98-107) Carbon Dioxide Level 23 mmol/L (20-31) Anion Gap 10 (5-15) Blood Urea Nitrogen 13 mg/dL (9-23) Creatinine 1.09 mg/dL (0.550-1.02) Glomerular Filtration Rate Calc 58 mL/min (>90) BUN/Creatinine Ratio 11.9 (10.0-20.0) Serum Glucose 124 mg/dL (74-106) Calcium Level 9.0 mg/dL (8.7-10.4) White Blood Count 10.0 10^3/uL (4.4-10.8) Red Blood Count 5.18 10^6/uL (4.0-5.20) Hemoglobin 15.2 g/dL (12.2-16.2) Hematocrit 45.1 % (36.0-46.0) Mean Corpuscular Volume 87.0 fL (80.0-100.0) Mean Corpuscular Hemoglobin 29.3 pg (28.0-32.0) Mean Corpuscular Hemoglobin Concent 33.6 g/dL (32.0-36.0) Red Cell Distribution Width 13.8 % (11.8-14.3) Platelet Count 199 10^3/uL (140-450) Mean Platelet Volume 10.2 fL (6.9-10.8) Neutrophils (%) (Auto) 77.5 % (37.0-80.0) Lymphocytes (%) (Auto) 15.0 % (10.0-50.0) Monocytes (%) (Auto) 5.5 % (0.0-12.0) Eosinophils (%) (Auto) 1.3 % (0.0-7.0) Basophils (%) (Auto) 0.7 % (0.0-2.0) Neutrophils # (Auto) 7.8 10 ^3/uL (1.6-8.6) Lymphocytes # (Auto) 1.5 10 ^3/uL (0.4-5.4) Monocytes # (Auto) 0.6 10 ^3/uL (0-1.3) Eosinophils # (Auto) 0.1 10 ^3/uL (0-0.8) Basophils # (Auto) 0.1 10 ^3/uL (0-0.2) Nucleated Red Blood Cells 0.1 % Urine Color Yellow (Yellow) Urine Clarity Clear (Clear) Urine pH 6.5 (5.0-9.0) Urine Specific [place] 1.021 (1.001-1.035) Urine Protein Negative (Negative) Urine Ketones Negative (Negative) Urine Blood 1+ /uL (Negative) Urine Nitrite Negative (Negative) Urine Bilirubin Negative (Negative) Urine Urobilinogen Normal mg/dL (Negative) Urine Leukocyte Esterase Negative /uL (Negative) Urine RBC 46 /hpf (0 - 4) Urine Microscopic WBC 1 /HPF (0-5) Urine Squamous Epithelial Cells Few /hpf (<5) Urine Bacteria None seen /hpf (None Seen) Urine Mucus Few (None Seen) Urine Glucose Normal mg/dL (Normal) Other Laboratory Tests 02/07/25 04:13 02/06/25 15:30 Brief Hx & Hospital Course: 67-year-old female presents for evaluation of right-sided flank pain. Patient reports the symptoms started today in the afternoon. Denies dysuria or hematuria. Reports chills and nausea. No other acute complaints reported 67-year-old female presents for evaluation of right-sided flank pain. Patient reports the symptoms started today in the afternoon. Denies dysuria or hematuria. Reports chills and nausea. No other acute complaints reported (1) Ureterolithiasis (2) Hydronephrosis, right (3) Intractable abdominal pain 02/08/2025 continue expulsive measures pain meds prn revaluate hydro tomorrow with renal US per urology 02/09/2025 continue with expulsive measure pain is better urology to evaluate 02/10/2025 urology: possible lithotripsy continue with current care 02/11/25 pain improved d/c to home Condition at Discharge: Fair Final Diagnosis/Problems List see above Discharge Disposition: Home Discharge Instruct/Medications Diet: Cardiac 2g Na,low cholest Activity: No Restrictions, As Tolerated Discharge Statement: "Patient was advised to return to the ER or call 911 if any headaches, dizziness, shortness of breath, chest pain, abdominal pain, bleeding, fevers, or worsening of medical condition. Patient was counseled about treatment plan, medications, possible side effects, patientverbalized understanding. All questions were answered to the best of my ability. This discharge took greater then 30 minutes in planning, reviewing documentation, counseling the patient, and discussing with other team members." ASSESSMENT ASSESSMENT Assessment Date of Service: Feb 11, 2025 Billing Provider: ZACK BADILLO DO Common Visit Codes: [id number] DISCH DAY >30min ZACK BADILLO DO Feb 11, 2025 12:51
[2025-02-11 12:53] VITALS: TEMP 36.7
[2025-02-11 12:57] VITALS: BP 126/72; PULSE 71; RESP 16; TEMP 98.4; O2SAT 96
== END 2025-02-11 13:15 | disposition home or self-care (01) | DRG 694 ==
LOC: EDBD 15:01 → ER 15:01 → OVERFLOW 19:18 → WEST WING 02-07 10:20
PROVIDERS: ADMIT Internal Medicine; ATTEND Internal Medicine
DX: N13.2 Hydronephrosis with renal and ureteral calculous obstruction (principal); F17.210 Nicotine dependence, cigarettes, uncomplicated; Z83.3 Family history of diabetes mellitus; Z80.8 Family history of malignant neoplasm of other organs or systems; Z82.49 Family history of ischemic heart disease and other diseases of the circulatory system; Z90.49 Acquired absence of other specified parts of digestive tract; Z79.899 Other long term (current) drug therapy
CPT/HCPCS: 36415; 74176; 76775; 80048; 80307; 81001; 85025; 93005; 96361; 96374; G0378; J2405